=== PATIENT | male | born 1965 | race Caucasian/White ===

== ENCOUNTER 2017-06-20 21:33 | Emergency (ER) | payer OTHER ==
[~2017-06-20] VITALS: Ht 175.3 cm; Wt 84.0 kg
[~2017-06-20 21:33] MED LIST: NOHOMEMEDS
[2017-06-21 00:38] LABS: HEMATOCRIT 42.5 % (38.0-50.0); MCH 29.1 PG (29.0-34.0); MCHC 34.4 G/DL (30.0-36.0); MCV 84.8 FL (86-99); MEAN PLAT.VOLUME 10.8 uM^3 (9.0-12.4); PLATELET COUNT 222 K/uL (156-360); RBC DIS.WIDTH-CV 11.9 % (11.8-14.6); RBC DIS.WIDTH-SD 36.7 % (39-53); RED BLOOD COUNT 5.01 M/uL (4.00-5.50); WHITE BLOOD COUNT 9.3 K/uL (4.1-10.2)
[2017-06-21 00:51] LABS: CHLORIDE 100 mEq/L (99-109); POTASSIUM 3.9 mEq/L (3.7-5.4); SODIUM 135 mEq/L (136-147)
[2017-06-21 00:54] LABS: ANION GAP 10 MEQ/L (2-14)
[2017-06-21 00:57] LABS: GFR ESTIMATE (CALCULATED) > 59 mL/min/; UREA NITROGEN (BUN) 16 mg/dL (9-23)
[2017-06-21 01:04] LABS: GLUCOSE 503 mg/dL (70-99)
[2017-06-21] MEDS ORDERED: REGLAN10 MG PO (02:14)
[2017-06-21 02:32] VITALS: BP 125/85
[2017-06-21 02:42] LABS: POINT-OF-CARE METER ID UU13113702
== END 2017-06-21 02:34 | disposition home or self-care (01) ==
LOC: EME 21:33
PROVIDERS: Physician Assistant
DX: R51 Headache (principal); E11.65 Type 2 diabetes mellitus with hyperglycemia; Z79.4 Long term (current) use of insulin; Z86.14 Personal history of Methicillin resistant Staphylococcus aureus infection
CPT/HCPCS: 80048; 82010; 82948; 85027; 99281; 99285; J1200; J1885; J2765; J7030

== ENCOUNTER 2017-11-22 13:20 | Emergency (ER) | payer OTHER, BC ==
[~2017-11-22] VITALS: Ht 175.3 cm; Wt 82.7 kg
[~2017-11-22 13:20] MED LIST changes: +REGLAN10 MG PO
[2017-11-22] MEDS ORDERED: MOTRIN800 MG PO (14:24)
[2017-11-22] MEDS ORDERED: KEFLEX500 MG PO (14:24)
[2017-11-22 15:35] VITALS: BP 135/84
== END 2017-11-22 15:36 | disposition home or self-care (01) ==
LOC: EME 13:20
DX: S61.211A Laceration without foreign body of left index finger without damage to nail, initial encounter (principal); S67.191A Crushing injury of left index finger, initial encounter; W23.1XXA Caught, crushed, jammed, or pinched between stationary objects, initial encounter; E11.9 Type 2 diabetes mellitus without complications; Z87.891 Personal history of nicotine dependence
CPT/HCPCS: 73140; 99281; 99284

== ENCOUNTER 2018-01-17 20:17 | Emergency (ER) | payer BC ==
[~2018-01-17] VITALS: Ht 175.3 cm; Wt 82.5 kg
[~2018-01-17 20:17] MED LIST changes: +KEFLEX500 MG PO; +MOTRIN800 MG PO
[2018-01-17] MEDS ORDERED: NAPROSYN500 MG PO (23:57)
[2018-01-17] MEDS ORDERED: FIORICET 50-301 EAC1 PO (23:57)
[2018-01-17] MEDS ORDERED: VIBRAMYCIN100 MG PO (23:57)
[2018-01-18 00:10] VITALS: BP 119/76
== END 2018-01-18 00:10 | disposition home or self-care (01) ==
LOC: EME 20:17
DX: R51 Headache (principal); R59.1 Generalized enlarged lymph nodes; E11.9 Type 2 diabetes mellitus without complications; Z87.891 Personal history of nicotine dependence; Z86.14 Personal history of Methicillin resistant Staphylococcus aureus infection; Z87.19 Personal history of other diseases of the digestive system; Z91.018 Allergy to other foods
CPT/HCPCS: 99281; 99283

== ENCOUNTER 2018-03-15 19:38 | Emergency (ER) | payer OTHER, BC ==
[~2018-03-15] VITALS: Ht 175.3 cm; Wt 83.7 kg
[~2018-03-15 19:38] MED LIST changes: +FIORICET 50-301 EAC1 PO; +NAPROSYN500 MG PO; +VIBRAMYCIN100 MG PO
[2018-03-15] MEDS ORDERED: FIORICET 50-301 EAC1 PO (21:00)
[2018-03-15 21:15] VITALS: BP 127/71
== END 2018-03-15 21:15 | disposition home or self-care (01) ==
LOC: RME 19:38 → EME 19:38 → RME 21:15
DX: R51 Headache (principal); Z86.14 Personal history of Methicillin resistant Staphylococcus aureus infection; Z87.891 Personal history of nicotine dependence
CPT/HCPCS: 99281; 99284; J1885; J7030

== ENCOUNTER 2018-04-06 21:42 | Emergency (ER) | payer OTHER, BC ==
[~2018-04-06] VITALS: Ht 175.3 cm; Wt 82.1 kg
[2018-04-07] MEDS ORDERED: MEDROL DOSEPAK4 MG PO (00:06)
[2018-04-07] MEDS ORDERED: NORCO 5/3251 TABLET PO (00:06)
[2018-04-07 00:29] VITALS: BP 132/80
== END 2018-04-07 01:11 | disposition home or self-care (01) ==
LOC: EME 21:42
DX: M25.511 Pain in right shoulder (principal); M54.2 Cervicalgia
CPT/HCPCS: 99281; 99284; J7512